=== PATIENT | female | born 1975 | race Two or more races ===

== ENCOUNTER 2025-02-25 14:35 | Emergency (ER) | payer SELFPAY ==
[~2025-02-25] VITALS: Ht 165.1 cm; Wt 119.0 kg
[2025-02-25 14:44] VITALS: BP 117/65; PULSE 71; RESP 20; TEMP 97; O2SAT 96
== END 2025-02-25 16:20 | disposition left against medical advice (07) ==
LOC: ER 14:35
DX: I10 Essential (primary) hypertension (principal); Z79.899 Other long term (current) drug therapy; Z53.21 Procedure and treatment not carried out due to patient leaving prior to being seen by health care provider
CPT/HCPCS: 82962